=== PATIENT | female | born 1970 | race Caucasian/White ===

== ENCOUNTER 2020-07-24 12:10 | Outpatient (CLI) | payer OTHER ==
--- NOTE | 2020-07-24 13:17 | MRI ---
MRI BRAIN WITHOUT CONTRAST: HISTORY: Dizziness, headache FINDINGS: No restricted diffusion is seen. There are a few foci of T2 prolongation in the periventricular white matter, consistent with minimal chronic small vessel ischemic disease. The ventricular size is appropriate and the basilar cisterns are patent. No evidence of acute infarct, hemorrhage, midline shift or abnormal extra-axial fluid collections is seen. There is a mucous retention cyst versus polyp in the right maxillary sinus. IMPRESSION: No evidence of acute intracranial process.
== END 2020-07-24 12:11 | disposition home or self-care (01) ==
LOC: BICMRI 12:10
PROVIDERS: ATTEND Family Medicine
DX: H83.03 Labyrinthitis, bilateral (principal); R42 Dizziness and giddiness; R51.9 Headache, unspecified
CPT/HCPCS: 70551

== ENCOUNTER 2021-12-07 13:16 | Outpatient (CLI) | payer OTHER | END 2021-12-07 13:17 | disposition home or self-care (01) | LOC: BICMAMMO 13:16 | PROVIDERS: ATTEND Family Medicine | DX: Z13.820 Encounter for screening for osteoporosis (principal) | CPT/HCPCS: 77080 ==

== ENCOUNTER 2022-01-18 10:15 | Outpatient (CLI) | payer OTHER | END 2022-01-18 10:16 | disposition home or self-care (01) | LOC: PET 10:15 | PROVIDERS: ATTEND Internal Medicine Hematology & Oncology | DX: C83.83 Other non-follicular lymphoma, intra-abdominal lymph nodes (principal) | CPT/HCPCS: 78815; A9552 ==

== ENCOUNTER → 2022-02-28 | Day surgery (SDC) | payer OTHER | END | disposition home or self-care (01) | LOC: MAMMO 07:01 | PROVIDERS: ATTEND Obstetrics & Gynecology | PROC: 0H9U3ZX Drainage of Left Breast, Percutaneous Approach, Diagnostic (ICD-10-PCS; principal; 2022-02-28) | DX: N60.42 Mammary duct ectasia of left breast (principal); N62 Hypertrophy of breast; R92.1 Mammographic calcification found on diagnostic imaging of breast; N60.12 Diffuse cystic mastopathy of left breast; N60.22 Fibroadenosis of left breast | CPT/HCPCS: 19283; 76098; 88305 ==

== ENCOUNTER 2023-07-04 14:45 | Outpatient (CLI) | payer OTHER | END 2023-07-04 14:46 | disposition home or self-care (01) | LOC: BICMAMMO 14:45 | PROVIDERS: ATTEND Obstetrics & Gynecology | DX: N63.20 Unspecified lump in the left breast, unspecified quadrant (principal) | CPT/HCPCS: G0279 ==